=== PATIENT | male | born 1985 | race Caucasian/White ===

== ENCOUNTER 2017-01-02 18:12 | Emergency (ER) | payer OTHER ==
--- NOTE | 2017-01-02 18:33 | ED ORDER SUMMARY ---
..... Patient: VENTURA SCHNEIDER OrderSheet [facility] VisitID: [id number] [address] [place] [address] 31y, M Registration Date/Time: 01/02/2017 ORDER SHEET Weight: 129.2 kg (stated) Allergies: None GENERAL ORDERS: MEDICATION ORDERS: Hydrocodone-APAP PO 10/650 mg (NOW, HIGH ALERT MEDICATION) (18:31 01/02/2017 Rodney P.A.-C) (Ack 18:39 KPage-Kuchan R.N.) (18:47 KPage-Kuchan R.N.) Amoxicillin PO 500 mg (NOW) (18:31 01/02/2017 Rodney P.A.-C) (Ack 18:39 KPage-Kuchan R.N.) (18:47 KPage-Kuchan R.N.) IV FLUIDS: ORDER SHEET NOTES: [Electronically signed by Mariella SandovalALisbeth-Nabor (18:56 01/02/2017)] [Electronically signed by Colin Gold R.N. (00:27 01/03/2017)] [Electronically locked/signed by Colin Gold R.N. (00:27 01/03/2017)]
--- NOTE | 2017-01-02 18:33 | ED CLINICAL REPORT ---
Clinical Report - Physicians/Mid Levels [facility] [address] [place] [address] 01/02/2017 18:13 Patient: VENTURA SCHNEIDER Time Seen: 183Jan 02 2017. Arrived- By private vehicle. Historian- patient. HISTORY OF PRESENT ILLNESS Chief Complaint: DENTAL PAIN. This started just prior to arrival and is still present. Pain described as mild. No mouth sores or nasal congestion. He has had swelling of the jaw. (patient reports dental pain over the last 2 days, recently saw dentist about 3 weeks ago. Denies difficulty swallowing. Has been in salt water gargles as well as taking Tylenol at home. Denies cough. Denies fevers. Denies recent dental trauma.). REVIEW OF SYSTEMS No fever, difficulty breathing, chest pain, diarrhea or abdominal pain. No headache. All systems otherwise negative, except as recorded above. SOCIAL HISTORY History of drug use. No alcohol use. ADDITIONAL NOTES The nursing notes have been reviewed. PHYSICAL EXAM Vital Signs: 01/02/2017 18:45 BP: 174/99. HR: 72. RR: 19. O2 saturation: 98%. Temp: 98.7 F. Pain level now: 10/10. Appearance: Patient in mild distress. ENT: Dental decay and tenderness. Ears normal. Nose normal. Pharynx normal. Lips normal. No trismus present. No trismus. (Rates a gumline tenderness. No signs of abscess. Small area of erythema of the gumline. Mild facial swelling on the right aspect. Face is otherwise symmetrical.). Neck: Trachea midline. No adenopathy. No meningeal signs. CVS: Normal heart rate and rhythm. Heart sounds normal. Respiratory: No respiratory distress. Breath sounds normal. Skin: Normal skin color. PROGRESS AND PROCEDURES Course of Care: No signs of trismus. Uvula midline. No signs of difficulty tolerating secretions. No tripod. No signs of facial asymmetry. Patient is stable. Patient/family counseled. Disposition: Discharged. CLINICAL IMPRESSION Mild dental pain. INSTRUCTIONS Drink plenty of fluids. (salt water rinses cold packs to outside). Prescription Medications: Amoxicillin 500 mg tablets: Take 1 orally every 8 hours for 10 days. Dispense thirty (30). No refills. Ibuprofen 800 mg tablets: take 1 tablet orally every 8 hours for 5 days, as needed for pain. Dispense fifteen (15). Follow-up: Follow up with a dentist in five days. (Electronically signed by Mariella Sandoval P.A.-C 01/02/2017 18:56)
--- NOTE | 2017-01-02 18:33 | ED NURSING NOTES ---
Clinical Report - Nurses [facility] [address] [place] [address] 01/02/2017 18:13 Patient: VENTURA SCHNEIDER TRIAGE Triage time 18:Jan 02 2017. Chief Complaint: RIGHT UPPER TOOTHACHE and (pt reports pain to right upper jaw , states going to the dentist 3 weeks ago and was told nothing was wrong). Alert. No acute distress. --18:29 Colin Gold R.N. 18:45 01/02/17. BP: 174/99. HR: 72. RR: 19. O2 saturation: 98%. Temp: 98.7 F. Pain level now: 03/29. --18:46 Colin Gold R.N. Weight: 129.2 kg stated. Height/Length: 70 inches Per Patient. BMI: 40.9. --18:27 Colin Gold R.N. Medications None. --18:27 Colin Gold R.N. Medication/allergy information source: the patient. --18:29 Colin Gold R.N. Allergies None. --18:27 Colin Gold R.N. History Arrived by private vehicle. Historian: patient. Onset. (1 days ago). He has had facial pain. He has had a toothache. 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 PAST MEDICAL HX: Immunizations: up-to-date. SURGERY HX: No history of previous surgery. SOCIAL HX: Smoker- current status unknown (cigarette). History of drug use: marijuana. No alcohol use. No infectious disease exposure. ABUSE ASSESSMENT: No report of abuse. SELF HARM ASSESSMENT: A self harm assessment was performed. The patient answered "no" to the question "Do you have thoughts of harming or killing yourself?". FALL RISK ASSESSMENT: Fall risk assessment completed. No fall risk identified. NUTRITIONAL RISK ASSESSMENT: The nutritional risk assessment revealed no deficiencies. FUNCTIONAL ASSESSMENT: Functional assessment: no impairments noted. LEARNING NEEDS ASSESSMENT: The learning needs assessment revealed no barriers. SKIN INTEGRITY ASSESSMENT: Skin integrity risk assessment completed. No skin integrity risk identified. --18:29 Colin Gold R.N. PROBLEMS: no known problems. ADDITIONAL SURGERIES: no known surgeries. Interventions ID band on patient. To treatment room. --18:29 Colin Gold R.N. PHYSICAL ASSESSMENT Ambulatory to room. GENERAL / NEURO / PSYCH: Alert. Oriented X 4. Appears in pain. HEENT: Pupils equal, round and reactive to light. Dental tenderness. Mucous membranes are pink. CVS: Capillary refill less than 2 seconds. SKIN: Skin is warm and dry. Normal skin turgor. --18:39 Colin Gold R.N. NURSING PROGRESS NOTES Reassurance given. Call light placed in reach. Side rails up. Bed placed in lowest position. Brakes of bed on. --18:39 Colin Gold R.N. 18:47 01/02/2017 Hydrocodone-APAP (Hydrocodone-Acetaminophen) PO 10/650 mg Tablets 2 tab given. Allergies verified, confirmed 5 rights and sedative warning given to the patient. --18:47 Colin Gold R.N. 18:47 01/02/2017 Amoxicillin PO 500 mg given. Allergies verified and confirmed 5 rights. --18:47 Colin Gold R.N. DISPOSITION / DISCHARGE No learning barriers present. Discharge instructions provided and reviewed with the patient. Reviewed medication(s) side effects, precautions, dosing and course information. Prescription(s) given to the patient. Patient verbalized understanding. Written instructions provided in Malay. The patient was discharged by the physician assistant professor surgical technology. He was discharged home. He left the Emergency Department ambulatory and via private vehicle. Patient driving. ( pt provided dental referral sheet for f/u, instructed on salt water rinses and fluid intake). --18:55 Colin Gold R.N. 18:54 01/02/17. BP: deferred. HR: deferred. RR: deferred. O2 saturation: deferred. Temp: deferred. Pain level now deferred. --18:55 Colin Gold R.N. Locked/Released at 01/03/2017 0:27 by Colin Gold R.N.
--- NOTE | 2017-01-02 18:33 | ED ORDER SUMMARY ---
..... Patient: VENTURA SCHNEIDER OrderSheet [facility] VisitID: [id number] [address] [place] [place] [address] 31y, M Registration Date/Time: 01/02/2017 ORDER SHEET Weight: 129.2 kg (stated) Allergies: None GENERAL ORDERS: MEDICATION ORDERS: Hydrocodone-APAP PO 10/650 mg (NOW, HIGH ALERT MEDICATION) (18:31 01/02/2017 Rodney P.A.-C) (Ack 18:39 KPage-Kuchan R.N.) (18:47 KPage-Kuchan R.N.) Amoxicillin PO 500 mg (NOW) (18:31 01/02/2017 Rodney P.A.-C) (Ack 18:39 KPage-Kuchan R.N.) (18:47 KPage-Kuchan R.N.) IV FLUIDS: ORDER SHEET NOTES: [Electronically signed by Mariella SandovalALisbeth-Nabor (18:56 01/02/2017)] [Electronically signed by Colin Gold R.N. (00:27 01/03/2017)] [Electronically locked/signed by Colin Gold R.N. (00:27 01/03/2017)]
--- NOTE | 2017-01-02 18:33 | ED CLINICAL REPORT ---
Clinical Report - Physicians/Mid Levels [facility] [address] [place] [address] 01/02/2017 18:13 Patient: VENTURA SCHNEIDER Time Seen: 183Jan 02 2017. Arrived- By private vehicle. Historian- patient. HISTORY OF PRESENT ILLNESS Chief Complaint: DENTAL PAIN. This started just prior to arrival and is still present. Pain described as mild. No mouth sores or nasal congestion. He has had swelling of the jaw. (patient reports dental pain over the last 2 days, recently saw dentist about 3 weeks ago. Denies difficulty swallowing. Has been in salt water gargles as well as taking Tylenol at home. Denies cough. Denies fevers. Denies recent dental trauma.). REVIEW OF SYSTEMS No fever, difficulty breathing, chest pain, diarrhea or abdominal pain. No headache. All systems otherwise negative, except as recorded above. SOCIAL HISTORY History of drug use. No alcohol use. ADDITIONAL NOTES The nursing notes have been reviewed. PHYSICAL EXAM Vital Signs: 01/02/2017 18:45 BP: 174/99. HR: 72. RR: 19. O2 saturation: 98%. Temp: 98.7 F. Pain level now: 10/10. Appearance: Patient in mild distress. ENT: Dental decay and tenderness. Ears normal. Nose normal. Pharynx normal. Lips normal. No trismus present. No trismus. (Rates a gumline tenderness. No signs of abscess. Small area of erythema of the gumline. Mild facial swelling on the right aspect. Face is otherwise symmetrical.). Neck: Trachea midline. No adenopathy. No meningeal signs. CVS: Normal heart rate and rhythm. Heart sounds normal. Respiratory: No respiratory distress. Breath sounds normal. Skin: Normal skin color. PROGRESS AND PROCEDURES Course of Care: No signs of trismus. Uvula midline. No signs of difficulty tolerating secretions. No tripod. No signs of facial asymmetry. Patient is stable. Patient/family counseled. Disposition: Discharged. CLINICAL IMPRESSION Mild dental pain. INSTRUCTIONS Drink plenty of fluids. (salt water rinses cold packs to outside). Prescription Medications: Amoxicillin 500 mg tablets: Take 1 orally every 8 hours for 10 days. Dispense thirty (30). No refills. Ibuprofen 800 mg tablets: take 1 tablet orally every 8 hours for 5 days, as needed for pain. Dispense fifteen (15). Follow-up: Follow up with a dentist in five days. (Electronically signed by Mariella Sandoval P.A.-C 01/02/2017 18:56)
--- NOTE | 2017-01-02 18:33 | ED NURSING NOTES ---
Clinical Report - Nurses [facility] [address] [place] [address] 01/02/2017 18:13 Patient: VENTURA SCHNEIDER TRIAGE Triage time 18:Jan 02 2017. Chief Complaint: RIGHT UPPER TOOTHACHE and (pt reports pain to right upper jaw , states going to the dentist 3 weeks ago and was told nothing was wrong). Alert. No acute distress. --18:29 Colin Gold R.N. 18:45 01/02/17. BP: 174/99. HR: 72. RR: 19. O2 saturation: 98%. Temp: 98.7 F. Pain level now: 03/29. --18:46 Colin Gold R.N. Weight: 129.2 kg stated. Height/Length: 70 inches Per Patient. BMI: 40.9. --18:27 Colin Gold R.N. Medications None. --18:27 Colin Gold R.N. Medication/allergy information source: the patient. --18:29 Colin Gold R.N. Allergies None. --18:27 Colin Gold R.N. History Arrived by private vehicle. Historian: patient. Onset. (1 days ago). He has had facial pain. He has had a toothache. 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 PAST MEDICAL HX: Immunizations: up-to-date. SURGERY HX: No history of previous surgery. SOCIAL HX: Smoker- current status unknown (cigarette). History of drug use: marijuana. No alcohol use. No infectious disease exposure. ABUSE ASSESSMENT: No report of abuse. SELF HARM ASSESSMENT: A self harm assessment was performed. The patient answered "no" to the question "Do you have thoughts of harming or killing yourself?". FALL RISK ASSESSMENT: Fall risk assessment completed. No fall risk identified. NUTRITIONAL RISK ASSESSMENT: The nutritional risk assessment revealed no deficiencies. FUNCTIONAL ASSESSMENT: Functional assessment: no impairments noted. LEARNING NEEDS ASSESSMENT: The learning needs assessment revealed no barriers. SKIN INTEGRITY ASSESSMENT: Skin integrity risk assessment completed. No skin integrity risk identified. --18:29 Colin Gold R.N. PROBLEMS: no known problems. ADDITIONAL SURGERIES: no known surgeries. Interventions ID band on patient. To treatment room. --18:29 Colin Gold R.N. PHYSICAL ASSESSMENT Ambulatory to room. GENERAL / NEURO / PSYCH: Alert. Oriented X 4. Appears in pain. HEENT: Pupils equal, round and reactive to light. Dental tenderness. Mucous membranes are pink. CVS: Capillary refill less than 2 seconds. SKIN: Skin is warm and dry. Normal skin turgor. --18:39 Colin Gold R.N. NURSING PROGRESS NOTES Reassurance given. Call light placed in reach. Side rails up. Bed placed in lowest position. Brakes of bed on. --18:39 Colin Gold R.N. 18:47 01/02/2017 Hydrocodone-APAP (Hydrocodone-Acetaminophen) PO 10/650 mg Tablets 2 tab given. Allergies verified, confirmed 5 rights and sedative warning given to the patient. --18:47 Colin Gold R.N. 18:47 01/02/2017 Amoxicillin PO 500 mg given. Allergies verified and confirmed 5 rights. --18:47 Colin Gold R.N. DISPOSITION / DISCHARGE No learning barriers present. Discharge instructions provided and reviewed with the patient. Reviewed medication(s) side effects, precautions, dosing and course information. Prescription(s) given to the patient. Patient verbalized understanding. Written instructions provided in Khmer. The patient was discharged by the physician customer support assistant. He was discharged home. He left the Emergency Department ambulatory and via private vehicle. Patient driving. ( pt provided dental referral sheet for f/u, instructed on salt water rinses and fluid intake). --18:55 Colin Gold R.N. 18:54 01/02/17. BP: deferred. HR: deferred. RR: deferred. O2 saturation: deferred. Temp: deferred. Pain level now deferred. --18:55 Colin Gold R.N. Locked/Released at 01/03/2017 0:27 by Colin Gold R.N.
--- NOTE | 2017-01-03 00:27 | ED DISCHARGE INSTRUCTIONS ---
Patient: VENTURA SCHNEIDER General Instructions [facility] VisitID: [id number] [place] [address] 31y, M Registration Date/Time: 01/02/2017 Mild dental pain. INSTRUCTIONS Drink plenty of fluids. (salt water rinses cold packs to outside). Prescription Medications: Amoxicillin 500 mg tablets: Take 1 orally every 8 hours for 10 days. Dispense thirty (30). No refills. Ibuprofen 800 mg tablets: take 1 tablet orally every 8 hours for 5 days, as needed for pain. Dispense fifteen (15). Follow-up: Follow up with a dentist in five days. ADDITIONAL INFORMATION Dental Pain A crack or cavity in the tooth, which exposes the sensitive inner area of the tooth can cause tooth pain. An infection in the gum or the root of the tooth can cause pain and swelling. The pain is often made worse by drinking hot or cold fluids, or biting on hard foods. Pain may spread from the tooth to the ear or jaw on the same side. Home Care: Avoid hot and cold foods and liquids since your tooth may be sensitive to temperature changes. If your tooth is chipped or cracked, or if there is a large open cavity, apply OIL OF CLOVES (available khbi-hzf-roxiqza in drug stores) directly to the tooth to reduce pain. Some pharmacies carry an ucio-euv-bfrywva "toothache kit." This contains a paste, which can be applied over the exposed tooth to decrease sensitivity. A cold pack on your jaw over the sore area may help reduce pain. You may use acetaminophen (Tylenol) or ibuprofen (Motrin, Advil) to control pain, unless another medicine was prescribed. [ NOTE: If you have chronic liver or kidney disease or ever had a stomach ulcer or GI bleeding, talk with your doctor before using these medicines.] If you have signs of an infection, an antibiotic will be given. Take it as directed. Follow-Up as directed with a dentist. Your pain may go away with the treatment given. However, only a dentist can fully evaluate and treat the cause and prevent the pain from coming back again. TOOTHACHE IS A SIGN OF DISEASE IN YOUR TOOTH AND SHOULD BE EXAMINED AND TREATED BY A DENTIST. Get Prompt Medical Attention if any of the following occur: Your face becomes swollen or red Pain worsens or spreads to the neck Fever over 100.4 F (38.0 C) Unusual drowsiness; headache or stiff neck; weakness or fainting Pus drains from the tooth Difficulty swallowing or breathing You have been given the following additional information: Dental Pain (Electronically signed by Mariella Sandoval P.A.-C 01/02/2017 18:56)
--- NOTE | 2017-01-03 00:27 | ED MAR SUMMARY ---
..... Medication Administration Record [facility] [address] [place] [address] Patient: VENTURA SCHNEIDER Visit ID: [id number] 31y, M Weight: 129.2 kg Height/Length: 70 in BMI: 40.9 ALLERGIES: None Given 18:47 01/02/2017 Colin Gold, RLisbethNLisbeth Medication Administered: HYDROCODONE-APAP [PO] (HYDROCODONE-ACETAMINOPHEN), Dose: 2 tab 10/650 mg Tablets PO. Medication Ordered: Hydrocodone-APAP PO 10/650 mg (NOW, HIGH ALERT MEDICATION). Given 18:47 01/02/2017 Colin Gold, RLisbethN. Medication Administered: AMOXICILLIN [PO], Dose: 500 mg PO. Medication Ordered: Amoxicillin PO 500 mg (NOW).
--- NOTE | 2017-01-03 00:27 | ED MED RECONCILIATION SUMMARY ---
Patient: VENTURA SCHNEIDER Medication Reconciliation Report [facility] VisitID: [id number] [address] [place] [address] 31y, M Registration Date/Time: 01/02/2017 Weight: 129.2 kg Height/Length: 70 in. BMI: 40.9 ALLERGIES: None The patient's Home Medications are listed below: NONE. The source(s) of the original Home Medication information: patient The following Medications were given to the patient in the Emergency Department: Hydrocodone-APAP [PO] PO 2 tab, administered: 01/02/2017 6:47:00 PM Amoxicillin [PO] PO 500 mg, administered: 01/02/2017 6:47:00 PM The following Medications were prescribed to the patient: Amoxicillin 500 mg tablets: Take 1 orally every 8 hours for 10 days. Dispense thirty (30). No refills. -- Mariella Sandoval, P.A.-C Ibuprofen 800 mg tablets: take 1 tablet orally every 8 hours for 5 days, as needed for pain. Dispense fifteen (15). -- Mariella Sandoval, P.A.-C
--- NOTE | 2017-01-03 00:27 | ED MED RECONCILIATION SUMMARY ---
Patient: VENTURA SCHNEIDER Medication Reconciliation Report [facility] VisitID: [id number] [address] [place] [address] 31y, M Registration Date/Time: 01/02/2017 Weight: 129.2 kg Height/Length: 70 in. BMI: 40.9 ALLERGIES: None The patient's Home Medications are listed below: NONE. The source(s) of the original Home Medication information: patient The following Medications were given to the patient in the Emergency Department: Hydrocodone-APAP [PO] PO 2 tab, administered: 01/02/2017 6:47:00 PM Amoxicillin [PO] PO 500 mg, administered: 01/02/2017 6:47:00 PM The following Medications were prescribed to the patient: Amoxicillin 500 mg tablets: Take 1 orally every 8 hours for 10 days. Dispense thirty (30). No refills. -- Mariella Sandoval, P.A.-C Ibuprofen 800 mg tablets: take 1 tablet orally every 8 hours for 5 days, as needed for pain. Dispense fifteen (15). -- Mariella Sandoval, P.A.-C
--- NOTE | 2017-01-03 00:27 | ED DISCHARGE INSTRUCTIONS ---
Patient: VENTURA SCHNEIDER General Instructions [facility] VisitID: [id number] [place] [address] 31y, M Registration Date/Time: 01/02/2017 Mild dental pain. INSTRUCTIONS Drink plenty of fluids. (salt water rinses cold packs to outside). Prescription Medications: Amoxicillin 500 mg tablets: Take 1 orally every 8 hours for 10 days. Dispense thirty (30). No refills. Ibuprofen 800 mg tablets: take 1 tablet orally every 8 hours for 5 days, as needed for pain. Dispense fifteen (15). Follow-up: Follow up with a dentist in five days. ADDITIONAL INFORMATION Dental Pain A crack or cavity in the tooth, which exposes the sensitive inner area of the tooth can cause tooth pain. An infection in the gum or the root of the tooth can cause pain and swelling. The pain is often made worse by drinking hot or cold fluids, or biting on hard foods. Pain may spread from the tooth to the ear or jaw on the same side. Home Care: Avoid hot and cold foods and liquids since your tooth may be sensitive to temperature changes. If your tooth is chipped or cracked, or if there is a large open cavity, apply OIL OF CLOVES (available uhrd-nzm-ykyoyax in drug stores) directly to the tooth to reduce pain. Some pharmacies carry an grdm-adp-nqktjmo "toothache kit." This contains a paste, which can be applied over the exposed tooth to decrease sensitivity. A cold pack on your jaw over the sore area may help reduce pain. You may use acetaminophen (Tylenol) or ibuprofen (Motrin, Advil) to control pain, unless another medicine was prescribed. [ NOTE: If you have chronic liver or kidney disease or ever had a stomach ulcer or GI bleeding, talk with your doctor before using these medicines.] If you have signs of an infection, an antibiotic will be given. Take it as directed. Follow-Up as directed with a dentist. Your pain may go away with the treatment given. However, only a dentist can fully evaluate and treat the cause and prevent the pain from coming back again. TOOTHACHE IS A SIGN OF DISEASE IN YOUR TOOTH AND SHOULD BE EXAMINED AND TREATED BY A DENTIST. Get Prompt Medical Attention if any of the following occur: Your face becomes swollen or red Pain worsens or spreads to the neck Fever over 100.4 F (38.0 C) Unusual drowsiness; headache or stiff neck; weakness or fainting Pus drains from the tooth Difficulty swallowing or breathing You have been given the following additional information: Dental Pain (Electronically signed by Mariella Sandoval P.A.-C 01/02/2017 18:56)
--- NOTE | 2017-01-03 00:27 | ED MAR SUMMARY ---
..... Medication Administration Record [facility] [address] [place] [address] Patient: VENTURA SCHNEIDER Visit ID: [id number] 31y, M Weight: 129.2 kg Height/Length: 70 in BMI: 40.9 ALLERGIES: None Given 18:47 01/02/2017 Colin Gold, RLisbethNLisbeth Medication Administered: HYDROCODONE-APAP [PO] (HYDROCODONE-ACETAMINOPHEN), Dose: 2 tab 10/650 mg Tablets PO. Medication Ordered: Hydrocodone-APAP PO 10/650 mg (NOW, HIGH ALERT MEDICATION). Given 18:47 01/02/2017 Colin Gold, RLisbethN. Medication Administered: AMOXICILLIN [PO], Dose: 500 mg PO. Medication Ordered: Amoxicillin PO 500 mg (NOW).
== END 2017-01-02 18:51 | disposition home or self-care (01) ==
LOC: ED SRH 18:12
DX: K08.89 Other specified disorders of teeth and supporting structures (principal)